=== PATIENT | male | born 2000 | race Caucasian/White ===

== ENCOUNTER 2019-03-05 04:56 | Observation (INO) ==
[2019-03-05] MEDS ORDERED: ONDANSETRON INJ 2 MG/ML 2 ML VIAL IV PRN ×2 (05:34→12:32)
[2019-03-05] MEDS ORDERED: MoRPHine SULFATE 4 MG/ML 1 ML CARP\\VIAL IV PRN (05:34)
[2019-03-05] MEDS ORDERED: MoRPHine SULFATE 2 MG/ML CARP IV PRN (05:34)
[2019-03-05] MEDS ORDERED: MoRPHine SULFATE 10 MG/ML CARP/VIAL IV PRN (05:34)
[2019-03-05] MEDS: LACTATED RINGER'S 1,000 ML IV SCH ×2 (06:26→17:10)
[2019-03-05] MEDS ORDERED: PATIENT'S HEIGHT AND/OR WEIGHT NEEDED SCH (06:30)
[2019-03-05] MEDS ORDERED: MoRPHine SULFATE 2 MG/ML CARP IV STA (08:00)
[2019-03-05] MEDS: cefOXitin 2,000 MG in DEXTROSE 5% 50 ML IV SCH ×2 (08:12→16:10)
--- NOTE | 2019-03-05 09:03 | History & Physical Report ---
Date of Service March 05, 2019 Assessment & Plan (1) Acute appendicitis: 18 year-old male with 17 hour history of abdominal pain with associated nausea and vomiting. CT scan of abdomen and pelvis with IV Contrast showing calcification in RLQ with tubular structure concerning for appendicolith and appendicitis. Leukocytosis of 15K. Afebrile. Abdominal examination with RLQ tenderness, positive McBurney's point and RLQ guarding. No peritonitis. Plan: Plan for laparoscopic appendectomy possible open. Informed patient of procedure and risks. Procedure to be performed today by Dr. Marie. Continue NPO Continue IV Fluids, IV Morphine prn pain, IV Zofran prn nausea Continue SCDs Continue IV Cefoxitin (2) Appendicolith: Plan as above Dr. Marie to evaluate patient and obtain informed consent. History of Present Illness Chief Complaint: Abdominal pain, nausea and vomiting Primary Care Provider: NO PCP Kwame is a 18 year-old male who originally presented to [facility] emergency department last evening with complaint of abdominal pain and vomiting that started around 4 pm. States abdominal pain was general abdominal pain which increased in severity as the night progressed with associated vomiting x 3. He has never had this type of pain before. Had loose bowel movement last evening as well. States any movement makes pain worse. [facility] emergency room did labs which showed leukocytosis of 15K. CT scan of abdomen and pelvis with IV contrast which shows calcification in the right lower quadrant presumed to be appendicolith measuring 8 mm with small tubular area around it with small amount of free pelvic fluid. Findings are suspicious for acute appendicitis. He was transferred to [facility] as there was no surgeon available at [facility]. Has never had any abdominal surgeries. Prior tonsillectomy and adenoidectomy. Kwame states pain is about 7/10 currently. Pain located in right lower abdomen. Having nausea. Any movement makes pain worse. Feels better lying on side with knees up to chest. Allergies Allergy/AdvReac Type Severity Reaction Status Date / Time No Known Allergies Allergy Unverified 03/05/19 06:16 Past Med/Surg History Surgical History (Updated 03/05/19 @ 08:56 by Milly Earl PA-C) History of adenoidectomy Hx of tonsillectomy Social History Preferred Language: Citizen Of [place] Communication Ability: Effective Beliefs That Will Affect Care: None Current Living Situation: Alone Current Living Situation Comment: College Student Other Information That Helps Us Care for You: No Feels Safe at Home: Yes Safety Concerns: Feels Safe At This Time Smoking Status: Never smoker Do You Dip or Chew Tobacco: No ; Second Hand Exposure: No ; Tobacco Cessation Education Requested by Patient: No Hx Alcohol Use: Yes Alcohol type: beer Hx Substance Use: No Review of Systems Review of Systems: All systems reviewed & are unremarkable except as noted in HPI & below Physical Exam Constitutional: WD/WN, vitals as above + acute distress (mild distress due to pain), + well hydrated and average body habitus; not ill appearing and not intoxicated appearing Respiratory: normal respiratory effort, lungs clear to auscultation Cardiovascular: RRR, no murmur, no edema Gastrointestinal (Abdomen): Inspection/Auscultation: abdomen normal to inspection; abdomen not distended Percussion/Palpation: + abdomen tender (RLQ, positive McBurneys point), + guarding (RLQ) and abdomen soft; abdomen not rigid Skin: no rashes, warm and dry Psychiatric: A+Ox3, euthymic affect Results & Data Vital Signs (Past 12 Hours) Vital Signs Temp Pulse Resp BP Pulse Ox 03/05/19 07:14 36.3 C L 39 L 14 114/63 99 03/05/19 05:00 36.4 C L 48 L 12 119/64 96 Laboratory Results Labs from [facility]: WBC 15.3K H&H 15.2/44.6 Platelets 190 Diagnostic Findings Report [facility]: CT scan of abdomen and pelvis with IV Contrast: "There is calcification in the right lower quadrant which I presume to be related to appendicolith, measuring bout 8 mm. There is a small tubular area low-density appearance around it that I suspect represents an inflamed appendix. This combined with a small amount of free pelvic fluid raises concern for appendicitis. " Code Status & VTE Plan VTE Prophylaxis Plan VTE Prophylaxis will be ordered: Yes Supervising Physician Co-Signing Physician Notes I interviewed and examined this patient and agree with the above note. This is a 18-year-old male who began to have abdominal discomfort last evening. It is now located in the right lower quadrant. He has tenderness in that area as well. CT showed evidence of acute cholecystitis. Planning a laparoscopic appendectomy. I explained that this may need to be converted to an open procedure. I explained the possible complications associated with the procedures and I answered his questions. He has signed a consent form.
[2019-03-05] MEDS: MoRPHine SULFATE 4 MG/ML 1 ML CARP\\VIAL IV PRN ×2 (11:12→19:25)
--- NOTE | 2019-03-05 11:57 | Anesthesiology Consultation ---
Date of Service March 05, 2019 Assessment & Plan (1) Encounter for pre-operative examination: Chart Review Chart Review: Acceptable Risk for Surgery History Surgery Operation Date: 03/05/19 11:00 Proposed Procedures p Laparoscopic Appendectomy - Jd Marie MD Height/Weight Height: 6 ft 2 in Weight: 86.1 kg Allergies Allergy/AdvReac Type Severity Reaction Status Date / Time No Known Allergies Allergy Unverified 03/05/19 06:16 Medications Active Medications Generic Name Dose Route Start Last Admin Trade Name Freq PRN Reason Stop Dose Admin Lactated Ringer's 1,000 mls @ 100 mls/hr 03/05/19 05:45 03/05/19 06:26 Lr IV 04/04/19 05:44 100 mls/hr .Q10H BREEZY Administration Cefoxitin Sodium 2,000 mg/ 60 mls @ 100 mls/hr 03/05/19 06:30 03/05/19 09:04 Dextrose IV 03/15/19 05:59 Infused Q6 BREEZY Infusion Morphine Sulfate 1 mg 03/05/19 05:34 03/05/19 06:37 Morphine Sulfate IV 03/19/19 05:33 1 mg Q3H PRN Administration MILD Pain (Scale 1,2,3) Morphine Sulfate 4 mg 03/05/19 08:35 03/05/19 11:12 Morphine Sulfate IV 03/19/19 08:34 4 mg Q3H PRN Administration SEVERE Pain (Scale 7,8,9,10) NPO Date Last Intake of Fluids: 03/04/19 Time Last Intake of Fluids: 23:00 Date Last Intake of Solids: 03/04/19 Time Last Intake of Solids: 23:00 Exercise / Class Metabolic Activity 1 > 8 Run/Swim/Ski/Tennis Past Surgical History Surgical History History of adenoidectomy Hx of tonsillectomy Social History Smoking Status: Never smoker Do You Dip or Chew Tobacco: No Hx Alcohol Use: Yes Alcohol type: beer alcohol intake frequency: other Alcohol Intake Frequency Comment: once a week Hx Substance Use: No Physical Exam Vital Signs Last Vital Signs Temp 37.2 C 03/05/19 11:28 Pulse 51 L 03/05/19 11:28 Resp 18 03/05/19 11:28 BP 133/63 03/05/19 11:28 Pulse Ox 96 03/05/19 11:28
[2019-03-05] MEDS ORDERED: ATROPINE SULFATE 0.1 MG/ML 10ML SYR IV PRN (12:32)
[2019-03-05] MEDS ORDERED: KETOROLAC 30 MG/ML VIAL IV PRN (12:32)
[2019-03-05] MEDS ORDERED: HYDROmorphone INJ 1 MG/ML SYRINGE IV PRN (12:32)
[2019-03-05] MEDS ORDERED: BUPIVACAINE 0.5 % 5 MG/1 ML MPF 30ML VIAL ONE (13:12)
[2019-03-05] MEDS ORDERED: HEPARIN (PORCINE) 1000 UNIT/ML 10 ML (CATH LAB USE ONLY) ONE (13:12)
[2019-03-05] MEDS ORDERED: CEFAZOLIN 250 MG/ML 1 GM VIAL ONE (13:12)
[2019-03-05] MEDS ORDERED: NEOSTIGMINE METHYLSULFATE 5 MG/5 ML SYR ONE (13:16)
[2019-03-05] MEDS ORDERED: MIDAZOLAM HCL 1 MG/ML 2ML VIAL ONE (13:16)
[2019-03-05] MEDS ORDERED: DEXAMETHASONE SOD INJ 4 MG/ML VIAL ONE (13:16)
[2019-03-05] MEDS ORDERED: ONDANSETRON INJ 2 MG/ML 2 ML VIAL ONE (13:16)
[2019-03-05] MEDS ORDERED: LIDOCAINE HCL 2% 2 ML VIAL/AMP(20MG/ML) INFIL ONE (13:16)
[2019-03-05] MEDS ORDERED: PROPOFOL IV EMULSION 10 MG/ML 20 ML VIAL IV ONE (13:16)
[2019-03-05] MEDS ORDERED: GLYCOPYRROLATE 0.2 MG/ML VIAL ONE (13:16)
[2019-03-05] MEDS ORDERED: fentaNYL citrate 100 MCG/2 ML VIAL ONE (13:17)
[2019-03-05] MEDS ORDERED: ROCURONIUM BROMIDE 10 MG/ML 5 ML VIAL ONE (14:08)
--- NOTE | 2019-03-05 14:54 | Post Operative Brief Note ---
Immediate Post Op Note v1 Date of Surgery March 05, 2019 Pre & Post Diagnosis Operation Date: 03/05/19 11:00 Pre-Op Diagnosis: Acute Appendicitis Post-Op Diagnosis: Acute Appendicitis I identified the patient and participated in the time-out.: Yes Procedure Operation Date: 03/05/19 11:00 Actual Procedures p Laparoscopic Appendectomy(Not Applicable) - Jd Marie MD Surgeon Jd Marie MD [employer] Reproducer None Estimated Blood Loss 5 Findings Consistent with Post-Op Diagnosis Specimens Appendix Drains Barbosa Catheter Anesthesia Type General Complications none
--- NOTE | 2019-03-05 15:32 | Anesthesiology Progress Note ---
Date of Service March 05, 2019 Anesthesia Post Procedure Vital Signs Vital Signs: Temp Pulse Pulse Resp BP Pulse Ox 03/05/19 15:29 63 16 124/55 L 100 03/05/19 15:20 56 L 24 113/54 L 98 03/05/19 15:10 58 L 15 97/54 L 98 03/05/19 15:00 36.5 C 58 L 14 94/39 L 98 03/05/19 11:28 37.2 C 51 L 18 133/63 96 03/05/19 07:14 36.3 C L 39 L 14 114/63 99 03/05/19 05:00 36.4 C L 48 L 12 119/64 96 Pain Intensity Right Abdomen: Pain Intensity: 7 Transfer of Care Handoff Completed per policy Notes Mental Status: alert / awake / arousable Patient Amnestic to Procedure: Yes Nausea / Vomiting: adequately controlled Pain: adequately controlled Airway Patency, RR, SpO2: stable & adequate BP & HR: stable & adequate Hydration State: stable & adequate Anesthetic Complications: no major complications apparent
[2019-03-05] MEDS ORDERED: KETOROLAC TROMETHAMINE 10 MG TABLET PO PRN (16:02)
[2019-03-05] MEDS: OXYCODONE/ACETAMINOPHEN 5mg/325mg TAB PO PRN (17:12)
--- NOTE | 2019-03-06 00:15 | Operative Report ---
DATE OF OPERATION: 03/05/2019 PREOPERATIVE DIAGNOSIS: Acute appendicitis. POSTOPERATIVE DIAGNOSIS: Acute appendicitis. PROCEDURE: Laparoscopic appendectomy. SURGEON: Jd Marie MD FINDINGS: The appendix in its distal three-fourths was hyperemic and firm. It was loosely adherent to the anterior abdominal wall. There was no evidence of perforation or abscess. There was no fluid in the abdominal cavity. TECHNIQUE: The patient was given a general anesthetic and the area was prepped and draped in the usual sterile fashion. A transverse incision was made below the umbilicus after the skin and subcutaneous tissue were anesthetized with 0.5% Marcaine. The fascia was identified, grasped with 2 Shelby clamps and incised between. The peritoneum was identified, incised, and the introducer was placed bluntly. The abdomen was then insufflated to a pressure of 15 mmHg with carbon dioxide. The lower midline introducer was then placed under direct vision through a small skin incision after the skin was anesthetized with 0.5% Marcaine. A similar technique was used to place the left lower quadrant introducer. The appendix was easily off the anterior abdominal wall and elevated. The mesoappendix was identified and a space was then easily created between the mesoappendix and the base of the appendix. The base of the appendix was normal as was the cecum at the base of the appendix. I then divided the mesoappendix using the Endo-JENIFFER stapler and the appendix was amputated with the Endo-JENIFFER stapler. The appendix was placed into an Endobag and brought out through the left lower quadrant introducer site with ease. That introducer was replaced and the right lower quadrant was irrigated and the irrigation removed. Any irrigation that entered the pelvis was removed. The mesoappendix staple line and the staple line on the cecum were inspected and there was no bleeding. Any irrigation that entered the right upper quadrant was removed. The gas was allowed to escape and the introducers were removed. The fascia of the umbilical and left lower quadrant introducer sites was closed with interrupted 0 Vicryl and the skin of all the incisions was closed with 4-0 Monocryl in either a running or interrupted subcuticular fashion. Additional local was placed in the skin and in the subcutaneous tissue under the incisions. The skin was cleansed, dried, benzoin placed, Steri-Strips applied. Estimated blood loss was 5 mL. Sponge, needle, and instrument counts were correct prior to closure. The patient tolerated the surgical procedure without complication and was transferred to recovery. I attest to the content of the Intraoperative Record and any orders documented therein. Any exception s are noted below.
[2019-03-06] MEDS: LACTATED RINGER'S 1,000 ML IV SCH (03:13)
--- NOTE | 2019-03-06 08:26 | Surgery Progress Note ---
Date of Service March 06, 2019 Assessment & Plan (1) Acute appendicitis: Status post appendectomy, postoperative day 1 Doing well Can discharge to home Discussed postoperative activity restrictions Can see next week and follow-up as he will be returning home to [place] for [facility] after that Present on Admission?: Yes Subjective Postop day #1 status post laparoscopic appendectomy Feels well Tolerating regular diet Passing gas Having very little pain Physical Exam Constitutional: no acute distress Gastrointestinal (Abdomen): Inspection/Auscultation: normal bowel sounds and + abdominal surgical incision (Clean, dry and intact); abdomen not distended Percussion/Palpation: + abdomen tender (Minimal incisional only) and abdomen soft Results & Data Vital Signs (Past 12 Hours) Vital Signs Temp Pulse Pulse Resp BP Pulse Ox 03/06/19 07:18 36.9 C 38 L 19 114/61 98 03/06/19 03:13 36.7 C 41 L 16 125/53 L 98 03/05/19 23:00 36.7 C 39 L 16 106/58 L 98
--- NOTE | 2019-03-06 08:29 | Anesthesiology Progress Note ---
Date of Service March 06, 2019 Anesthesia Post Procedure Vital Signs Vital Signs: Temp Pulse Pulse Pulse Resp BP BP 03/06/19 07:18 36.9 C 38 L 19 114/61 03/06/19 03:13 36.7 C 41 L 16 125/53 L 03/05/19 23:00 36.7 C 39 L 16 106/58 L 03/05/19 19:02 36.9 C 55 L 16 113/53 L 03/05/19 18:15 36.8 C 42 L 16 113/61 03/05/19 16:59 43 L 17 118/74 03/05/19 15:55 36.8 C 58 L 18 117/68 03/05/19 15:40 37 C 60 16 122/53 L 03/05/19 15:29 63 16 124/55 L 03/05/19 15:20 56 L 24 113/54 L 03/05/19 15:10 58 L 15 97/54 L 03/05/19 15:00 36.5 C 58 L 14 94/39 L 03/05/19 11:28 37.2 C 51 L 18 133/63 Pulse Ox 03/06/19 07:18 98 03/06/19 03:13 98 03/05/19 23:00 98 03/05/19 19:02 97 03/05/19 18:15 96 03/05/19 16:59 97 03/05/19 15:55 98 03/05/19 15:40 98 03/05/19 15:29 100 03/05/19 15:20 98 03/05/19 15:10 98 03/05/19 15:00 98 03/05/19 11:28 96 Notes Mental Status: alert / awake / arousable and participated in evaluation Patient Amnestic to Procedure: Yes Nausea / Vomiting: adequately controlled Pain: adequately controlled Airway Patency, RR, SpO2: stable & adequate BP & HR: stable & adequate Hydration State: stable & adequate Anesthetic Complications: no major complications apparent and Pt Satisfied with anesthetic care
[2019-03-06] MEDS: OXYCODONE/ACETAMINOPHEN 5mg/325mg TAB PO PRN (10:18)
--- NOTE | 2019-03-07 11:45 | Discharge Summary ---
Date of Service March 07, 2019 Admission HPI Per Admitting Provider Kwame is a 18 year-old male who originally presented to [facility] emergency department last evening with complaint of abdominal pain and vomiting that started around 4 pm. States abdominal pain was general abdominal pain which increased in severity as the night progressed with associated vomiting x 3. He has never had this type of pain before. Had loose bowel movement last evening as well. States any movement makes pain worse. [facility] emergency room did labs which showed leukocytosis of 15K. CT scan of abdomen and pelvis with IV contrast which shows calcification in the right lower quadrant presumed to be appendicolith measuring 8 mm with small tubular area around it with small amount of free pelvic fluid. Findings are suspicious for acute appendicitis. He was transferred to [facility] as there was no surgeon available at [facility]. Has never had any abdominal surgeries. Prior tonsillectomy and adenoidectomy. Kwame states pain is about 7/10 currently. Pain located in right lower abdomen. Having nausea. Any movement makes pain worse. Feels better lying on side with knees up to chest. Principal Diagnosis Acute appendicitis with appendicolith Discharge Data Allergies Allergy/AdvReac Type Severity Reaction Status Date / Time No Known Allergies Allergy Unverified 03/05/19 06:16 Procedures Performed Operation Date: 03/05/19 11:00 Actual Procedures p Laparoscopic Appendectomy(Not Applicable) - Jd Marie MD Hospital Course (1) Acute appendicitis: Patient was transferred from [facility] for acute appendicitis as there was no surgeon available. Patient was direct admit to medical/surgical floor by Dr. Topete. Patient was valuated in the morning around 8 am and scheduled for laparoscopic appendectomy possible open by Dr. Mraie. Patient was taken to operating room and found to have acute appendicitis without perforation or abscess. Patient tolerated procedure well and was transferred back to recovery and then to medical/sugical floor for post op care. Diet was advanced to regular diet, PO Percocet and toradol were ordered prn pain, SCDS, activity as tolerated, and incentive spirometry. POD #1, vitals stable, afebrile, pain well controlled, tolerating regular diet, ambulating hallway, urinating without diffculty. Patient was discharged home on POD # 1 in stable condition. Total Time Total Time Spent Total Time Spent (In Minutes): 20 Total Time Includes: Examination of the Patient, Discharge Planning and Medication Reconciliation Discharge Plan Discharge Items Patient Disposition: Home - Self-Care Reason For Visit: ACUTE APPENDICITIS Discharge Diagnosis: Acute appendicitis Activity: Per Instructions section Non-emergency contact: Surgeon Call non-emergency contact if: you have any medication questions, your pain is not controlled, your pain is worsening, your pain is concerning for you, you have a fever, your temperature is above 101, your wound has increased redness, your wound has increased drainage and your wound pain has increased Follow-up/Referrals: PCP,NO [Primary Care Provider] - Diet: Regular Addtl Attending Provider Instructions: Post-Surgical ~Discharge Instructions Activity Recommendations: - lifting limitation: (10 pounds for 2 weeks), - exercise/sex/sports limit: (nonstrenuous for 2 weeks), - driving or machine use limit: (none for 1 week), - Shower/bathe limit: (may shower beginning tonight) Diet: - Resume previous diet SPECIAL CARE INSTRUCTIONS: - May shower tonight. Let water run over area and pat dry. - Leave steri strips on for one week and then remove. If they fall off before that is okay. - Call the surgeon's office with any questions or concerns - - (ex. temperature higher than 101 degrees F, excessive bleeding or pain). MEDICATIONS: - Resume previous medications unless instructed otherwise by your surgeon. - Percocet (Narcotic pain medication) 1 tab every 4 hours as needed for pain. - Can alternate Ibuprofen and Tylenol as needed for mild pain. Can alternate Ibuprofen with Percocet. When you are no longer taking Percocet than you can alternate extra strength Tylenol and Ibuprofen. - Ibuprofen 600 mg every 6 hours with food - Tylenol 650 mg every 6 hours as needed FOLLOW UP VISIT: - If not already scheduled, please call the office to schedule a one week follow-up appointment. Office number Pending Studies at Discharge: Yes (Appendix pathology, will be reviewed at follow up visit) Stand-Alone Forms: My SEDLine, Smoking Cessation Medications and DC Order Prescriptions: New oxycodone-acetaminophen [Percocet] 5-325 mg Tablet 1 tab PO Q4H PRN (Reason: pain) Qty: 10 RF: 0 Discharge Orders: Discharge Order (Routine); Ordered 03/06/19 Ordered By: Milly Earl Admission Data Admit Date/Time: 03/05/19 05:34 Attending Provider: Yu Topete Admit Provider: Yu Topete Primary Care Provider: PCP,NO Other Interventions: Discharge Summary Assessment (RN) Last Done: 03/06/19 09:36 DC Date/Time DO NOT enter until pt leaves facility: 03/06/19 10:31
== END 2019-03-06 10:31 | disposition home or self-care (01) ==
LOC: INTOOBSV 04:57 → 3W 04:57